=== PATIENT | female | born 1955 | race Caucasian/White ===

== ENCOUNTER 2019-10-05 16:54 | Emergency (ER) | payer OTHER ==
[~2019-10-05] VITALS: Ht 162.6 cm; Wt 140.6 kg
[2019-10-05] MEDS ORDERED: KEFLEX500 M1 PO (17:20)
[2019-10-05 18:01] VITALS: BP 164/80
== END 2019-10-05 18:05 | disposition home or self-care (01) ==
LOC: M.ERS 16:54
DX: S01.81XA Laceration without foreign body of other part of head, initial encounter (principal); I10 Essential (primary) hypertension; W01.0XXA Fall on same level from slipping, tripping and stumbling without subsequent striking against object, initial encounter; Y93.89 Activity, other specified; Y92.89 Other specified places as the place of occurrence of the external cause; Y99.8 Other external cause status